=== PATIENT | female | born 1995 | race African-American/Black ===

== ENCOUNTER 2023-09-03 23:57 | Observation (INO) | payer MEDICAID, OTHER ==
[~2023-09-03] VITALS: Ht 162.6 cm; Wt 68.5 kg
== END 2023-09-04 03:25 | disposition home or self-care (01) ==
LOC: LDRP 23:57
PROVIDERS: ADMIT Obstetrics & Gynecology; ATTEND Obstetrics & Gynecology
DX: O46.92 Antepartum hemorrhage, unspecified, second trimester (principal); O26.892 Other specified pregnancy related conditions, second trimester; N93.9 Abnormal uterine and vaginal bleeding, unspecified; R10.30 Lower abdominal pain, unspecified; Z3A.22 22 weeks gestation of pregnancy
CPT/HCPCS: 59025; 76815; 81002; G0378